=== PATIENT | female | born 1990 | race Caucasian/White ===

== ENCOUNTER 2018-01-11 12:20 | Emergency (ER) | payer OTHER, MEDICAID ==
[~2018-01-11] VITALS: Ht 152.4 cm; Wt 108.9 kg
[~2018-01-11 12:20] MED LIST: ACETAMINOPHEN-1 EAC1; ACETAMINOPHEN-1 EAC1 PO; ANTIBIOTIC; BACTRIM DS TAB1 EACH PO; BENTYL 20 MG TA20 M1 PO; CIPRO250 M1 PO; CITRATE OF MAG300 ML PO; IBUPROFEN 200200 M1 PO; IBUPROFEN 600600 M1 PO; LOESTRIN 24 FE1 EACH PO; MACROBID 100 M100 M1 PO; MACROBID 100 M100 M2 PO; NOHOMEMEDICATIONS; NORCO 5-325 TA1 EACH PO; ONDANSETRON HCL4 M2 PO; PRENATAL; PRENATAL OR; PYRIDIUM200 MG PO; ULTRAM 50MG TAB50 MG PO
[2018-01-11 12:35] VITALS: BP 152/87
[2018-01-11] MEDS ORDERED: PRILOSEC 20 MG20 MG PO (12:37)
[2018-01-11] MEDS ORDERED: ACETAMINOPHEN-1 EAC1 PO (12:53)
[2018-01-11] MEDS ORDERED: AUGMENTIN 875-1 EACH PO (12:53)
== END 2018-01-11 13:04 | disposition home or self-care (01) ==
LOC: M.ERS 12:20
DX: K04.7 Periapical abscess without sinus (principal); Z77.22 Contact with and (suspected) exposure to environmental tobacco smoke (acute) (chronic); Z88.1 Allergy status to other antibiotic agents; Z90.49 Acquired absence of other specified parts of digestive tract

== ENCOUNTER 2018-03-12 15:42 | Emergency (ER) | payer OTHER, MEDICAID ==
[~2018-03-12] VITALS: Ht 152.4 cm; Wt 106.6 kg
[~2018-03-12 15:42] MED LIST changes: +AUGMENTIN 875-1 EACH PO; +PRILOSEC 20 MG20 MG PO
[2018-03-12 16:30] LABS: ABSOLUTE EOSINOPHILS 0.1 thou/uL (0.0-0.7); ABSOLUTE LYMPHOCYTES 1.5 thou/uL (0.8-5.3); ABSOLUTE MONOCYTES 0.5 thou/uL (0.0-1.2); ABSOLUTE NEUTROPHILS 4.6 thou/uL (1.6-8.1); BASOPHILS 0.2 %; HEMATOCRIT 35.9 % (37.0-47.0); HEMOGLOBIN 11.7 gm/dL (12.0-15.0); LYMPHOCYTES 22.7 %; MCH 25.5 pg (26.0-34.0); MCHC 32.6 g/dL (28.0-37.0); MCV 78.4 fL (80.0-100.0); MONOCYTES 8.1 %; MPV 8.6 fl. (7.2-11.1); NUCLEATED RBCS 0 /100WBC; PLATELET COUNT* 264 thou/uL (150-400); RBC 4.58 mil/uL (4.20-5.00); RDW-CV 17.4 % (10.5-14.5); WBC 6.7 thou/uL (4.0-11.0)
[2018-03-12 16:31] LABS: URINE BILIRUBIN NEGATIVE (Negative); URINE BLOOD NEGATIVE (Negative); URINE CLARITY CLEAR; URINE COLOR YELLOW; URINE GLUCOSE-RANDOM NEGATIVE (Negative); URINE KETONES NEGATIVE (Negative); URINE LEUKOCYTES NEGATIVE (Negative); URINE NITRITE NEGATIVE (Negative); URINE PROTEIN NEGATIVE (Negative); URINE SPECIFIC GRAVITY <= 1.005 (1.005-1.030); URINE UROBILINOGEN 0.2 E.U./dl (0.2-1.0)
[2018-03-12 16:41] LABS: CALCIUM 8.7 mg/dL (8.5-10.1); CREATININE 0.9 mg/dL (0.6-1.3); POTASSIUM 3.3 mmol/L (3.5-5.1)
[2018-03-12 16:45] LABS: ALBUMIN 3.7 g/dL (3.4-5.0); TOTAL BILIRUBIN 0.3 mg/dL (<0.1-1.0); TOTAL PROTEIN 7.5 g/dL (6.4-8.2)
[2018-03-12] MEDS ORDERED: ONDANSETRON HCL4 M2 PO (18:38)
[2018-03-12] MEDS ORDERED: PRILOSEC 20 MG20 MG PO (18:38)
[2018-03-12] MEDS ORDERED: TRAMADOL 50 MG50 MG PO (18:40)
[2018-03-12 19:24] VITALS: BP 139/90
== END 2018-03-12 19:26 | disposition home or self-care (01) ==
LOC: M.ERS 15:42
PROVIDERS: Nurse Practitioner Family
DX: K52.9 Noninfective gastroenteritis and colitis, unspecified (principal); K21.9 Gastro-esophageal reflux disease without esophagitis; N83.202 Unspecified ovarian cyst, left side; Z90.49 Acquired absence of other specified parts of digestive tract

== ENCOUNTER 2018-06-26 14:50 | Emergency (ER) | payer OTHER, MEDICAID ==
[~2018-06-26] VITALS: Ht 152.4 cm; Wt 104.3 kg
[~2018-06-26 14:50] MED LIST changes: +TRAMADOL 50 MG50 MG PO
[2018-06-26 15:01] VITALS: BP 154/85
[2018-06-26] MEDS ORDERED: AMOXICILLIN 50500 MG PO (15:12)
== END 2018-06-26 15:20 | disposition home or self-care (01) ==
LOC: M.ERS 14:50
DX: J01.90 Acute sinusitis, unspecified (principal); B96.89 Other specified bacterial agents as the cause of diseases classified elsewhere; Z77.22 Contact with and (suspected) exposure to environmental tobacco smoke (acute) (chronic); Z88.1 Allergy status to other antibiotic agents; Z88.2 Allergy status to sulfonamides; Z90.49 Acquired absence of other specified parts of digestive tract; Z98.890 Other specified postprocedural states

== ENCOUNTER 2018-08-19 17:26 | Emergency (ER) | payer MEDICAID ==
[~2018-08-19] VITALS: Ht 152.4 cm; Wt 104.3 kg
[~2018-08-19 17:26] MED LIST changes: +AMOXICILLIN 50500 MG PO
[2018-08-19 17:47] LABS: URINE BILIRUBIN NEGATIVE (Negative); URINE BLOOD NEGATIVE (Negative); URINE CLARITY SL CLOUDY; URINE COLOR STRAW; URINE GLUCOSE-RANDOM NEGATIVE (Negative); URINE KETONES NEGATIVE (Negative); URINE LEUKOCYTES-REFLEX 2+ (Negative); URINE NITRITE-REFLEX NEGATIVE (Negative); URINE PROTEIN NEGATIVE (Negative); URINE SPECIFIC GRAVITY <= 1.005 (1.005-1.030); URINE UROBILINOGEN 0.2 E.U./dl (0.2-1.0)
[2018-08-19 17:51] LABS: SQUAMOUS >10 Many /LPF (0-3)
[2018-08-19 17:53] LABS: URINE RBC 0-2 Rare /HPF (0-2); URINE WBC-REFLEX 6-15 Few /HPF (0-5)
[2018-08-19 17:54] LABS: CASTS None Seen /LPF (None Seen); CRYSTALS None Seen /LPF (None Seen); MUCUS None Seen strn/LPF (None Seen)
[2018-08-19 18:04] LABS: ABSOLUTE EOSINOPHILS 0.1 thou/uL (0.0-0.7); ABSOLUTE LYMPHOCYTES 2.4 thou/uL (0.8-5.3); ABSOLUTE MONOCYTES 0.7 thou/uL (0.0-1.2); ABSOLUTE NEUTROPHILS 5.6 thou/uL (1.6-8.1); BASOPHILS 0.4 %; EOSINOPHILS 0.8 %; HEMATOCRIT 35.1 % (37.0-47.0); HEMOGLOBIN 11.5 gm/dL (12.0-15.0); MCH 25.3 pg (26.0-34.0); MCHC 32.8 g/dL (28.0-37.0); MCV 77.1 fL (80.0-100.0); MONOCYTES 7.9 %; MPV 8.4 fl. (7.2-11.1); NUCLEATED RBCS 0 /100WBC; PLATELET COUNT* 333 thou/uL (150-400); POLYS 63.9 %; RBC 4.56 mil/uL (4.20-5.00); RDW-CV 18.5 % (10.5-14.5); WBC 8.8 thou/uL (4.0-11.0)
[2018-08-19 18:06] LABS: CREATININE 1.2 mg/dL (0.6-1.3); POTASSIUM 3.6 mmol/L (3.5-5.1)
[2018-08-19 18:10] LABS: TOTAL BILIRUBIN 0.3 mg/dL (<0.1-1.0); TOTAL PROTEIN 7.8 g/dL (6.4-8.2)
[2018-08-19] MEDS ORDERED: NAPROSYN500 MG PO (20:03)
[2018-08-19] MEDS ORDERED: ACETAMINOPHEN-1 EAC1 PO (20:03)
[2018-08-19] MEDS ORDERED: MACROBID 100 M100 M1 PO (20:03)
[2018-08-19 20:12] VITALS: BP 135/85
== END 2018-08-19 20:12 | disposition home or self-care (01) ==
LOC: M.ERS 17:26
PROVIDERS: Nurse Practitioner Family; Physician Assistant
DX: N83.201 Unspecified ovarian cyst, right side (principal); N39.0 Urinary tract infection, site not specified; Z77.22 Contact with and (suspected) exposure to environmental tobacco smoke (acute) (chronic); Z88.1 Allergy status to other antibiotic agents; Z88.2 Allergy status to sulfonamides; Z90.49 Acquired absence of other specified parts of digestive tract; Z98.890 Other specified postprocedural states

== ENCOUNTER 2018-12-03 18:24 | Emergency (ER) | payer OTHER, MEDICAID ==
[~2018-12-03] VITALS: Ht 152.4 cm; Wt 104.3 kg
[~2018-12-03 18:24] MED LIST changes: +NAPROSYN500 MG PO
[2018-12-03] MEDS ORDERED: ZOLOFT25 MG PO (18:35)
[2018-12-03] MEDS ORDERED: ZANTAC 150MG T150 MG PO (18:35)
[2018-12-03] MEDS ORDERED: NORCO 5-325 TA1 EACH PO (19:01)
[2018-12-03 19:53] VITALS: BP 113/51
== END 2018-12-03 19:53 | disposition home or self-care (01) ==
LOC: M.ERS 18:24
DX: S53.491A Other sprain of right elbow, initial encounter (principal); Z90.49 Acquired absence of other specified parts of digestive tract; Z98.890 Other specified postprocedural states; Z88.1 Allergy status to other antibiotic agents; Z88.2 Allergy status to sulfonamides; W01.0XXA Fall on same level from slipping, tripping and stumbling without subsequent striking against object, initial encounter; Y93.89 Activity, other specified; Y92.89 Other specified places as the place of occurrence of the external cause; Y99.8 Other external cause status

== ENCOUNTER 2018-12-08 19:53 | Emergency (ER) | payer OTHER ==
[~2018-12-08] VITALS: Ht 152.4 cm; Wt 104.3 kg
[~2018-12-08 19:53] MED LIST changes: +ZANTAC 150MG T150 MG PO; +ZOLOFT25 MG PO
[2018-12-08] MEDS ORDERED: NORFLEX100 MG PO (21:31)
[2018-12-08] MEDS ORDERED: IBUPROFEN 800800 M1 PO (21:31)
[2018-12-08 21:51] VITALS: BP 139/78
== END 2018-12-08 21:51 | disposition home or self-care (01) ==
LOC: M.ERS 19:53
DX: S16.1XXA Strain of muscle, fascia and tendon at neck level, initial encounter (principal); S29.012A Strain of muscle and tendon of back wall of thorax, initial encounter; S40.011A Contusion of right shoulder, initial encounter; S09.8XXA Other specified injuries of head, initial encounter; Z90.49 Acquired absence of other specified parts of digestive tract; Z98.890 Other specified postprocedural states; Z88.1 Allergy status to other antibiotic agents; Z88.2 Allergy status to sulfonamides; Z77.22 Contact with and (suspected) exposure to environmental tobacco smoke (acute) (chronic); V89.2XXA Person injured in unspecified motor-vehicle accident, traffic, initial encounter; Y93.89 Activity, other specified; Y92.89 Other specified places as the place of occurrence of the external cause; Y99.8 Other external cause status

== ENCOUNTER 2019-02-08 01:31 | Emergency (ER) | payer OTHER, MEDICAID ==
[~2019-02-08] VITALS: Ht 152.4 cm; Wt 111.6 kg
[~2019-02-08 01:31] MED LIST changes: +IBUPROFEN 800800 M1 PO; +NORFLEX100 MG PO
[2019-02-08] MEDS ORDERED: ZOLOFT50 MG PO (01:41)
[2019-02-08 02:04] LABS: ABSOLUTE BASOPHILS 0.1 thou/uL (0.0-0.2); ABSOLUTE EOSINOPHILS 0.1 thou/uL (0.0-0.7); ABSOLUTE LYMPHOCYTES 2.2 thou/uL (0.8-5.3); ABSOLUTE NEUTROPHILS 6.1 thou/uL (1.6-8.1); BASOPHILS 0.7 %; EOSINOPHILS 1.5 %; HEMATOCRIT 35.9 % (37.0-47.0); HEMOGLOBIN 11.6 gm/dL (12.0-15.0); LYMPHOCYTES 22.9 %; MCH 25.6 pg (26.0-34.0); MCHC 32.5 g/dL (28.0-37.0); MCV 78.9 fL (80.0-100.0); MONOCYTES 10.2 %; MPV 8.3 fl. (7.2-11.1); NUCLEATED RBCS 0 /100WBC; PLATELET COUNT* 298 thou/uL (150-400); POLYS 64.7 %; RBC 4.54 mil/uL (4.20-5.00); RDW-CV 17.8 % (10.5-14.5); WBC 9.5 thou/uL (4.0-11.0)
[2019-02-08 02:23] LABS: ANION GAP 8 mmol/L (7-16); BUN 10 mg/dL (7-18); CALCIUM 8.8 mg/dL (8.5-10.1); CHLORIDE 105 mmol/L (98-107); CO2 27 mmol/L (21-32); GLUCOSE 96 mg/dL (70-99); POTASSIUM 4.1 mmol/L (3.5-5.1); SODIUM 140 mmol/L (136-145)
[2019-02-08 02:33] LABS: ALBUMIN 3.4 g/dL (3.4-5.0); ALKALINE PHOSPHATASE 67 U/L (46-116); LIPASE 156 U/L (73-393); MAGNESIUM 1.8 mg/dL (1.8-2.4); NT-PRO BRAIN NAT PEPTIDE 25 pg/mL (<300); SGOT 17 U/L (15-37); SGPT 27 U/L (30-65); TOTAL BILIRUBIN 0.2 mg/dL (<0.1-1.0); TOTAL PROTEIN 7.3 g/dL (6.4-8.2); TROPONIN-I LEVEL <0.06 ng/mL (<0.06)
[2019-02-08] MEDS ORDERED: CARAFATE 1 GM TA1 G1 PO (03:15)
[2019-02-08] MEDS ORDERED: ZOFRAN ODT4 MG DISSOLVE (03:15)
[2019-02-08 03:25] VITALS: BP 143/87
--- NOTE | 2019-02-08 16:36 | EKG ---
[place] [address] ELECTROCARDIOGRAM REPORT Name: ANNEMARIE MENDENHALL Room: [facility]#: [id number] Admission: 02/08/19 Attend Phys: Discharge: 02/08/19 Date of : 86 Report #: [id number] THIS REPORT FOR: //name// [facility] ED Test Date: 2019-02-08 Test Time: 01:36:39 Pat Name: ANNEMARIE MENDENHALL Department: Room: Gender: F [employer]: [place] : 1990 Requested By: Bernardino Mcmahon Order Number: [id number] MD: Jeffrey Capps Measurements Intervals [place] Rate: 76 P: 25 ID: [id number] QRS: 4 QRSD: 104 T: 48 QT: 405 QTc: 456 Interpretive Statements Sinus rhythm Abnormal T, consider ischemia, anterior leads Compared to ECG 05/22/2010 19:34:50 T-wave abnormality now present Possible ischemia now present Incomplete right bundle-branch block no longer present Electronically Signed On 02-08-2019 16:35:49 CDT by Jeffrey Capps [email or web address] <ELECTRONICALLY SIGNED> By: Jeffrey Capps MD, [facility] 02/08/19 [id number] [id number] Jeffrey Capps MD, [facility] /EPI
== END 2019-02-08 03:25 | disposition home or self-care (01) ==
LOC: M.ERS 01:31
PROVIDERS: Emergency Medicine Emergency Medical Services
DX: R07.89 Other chest pain (principal); Z77.22 Contact with and (suspected) exposure to environmental tobacco smoke (acute) (chronic); Z88.1 Allergy status to other antibiotic agents; Z88.2 Allergy status to sulfonamides; Z90.49 Acquired absence of other specified parts of digestive tract; Z98.51 Tubal ligation status

== ENCOUNTER 2019-06-05 14:12 | Emergency (ER) | payer OTHER, MEDICAID ==
[~2019-06-05] VITALS: Ht 152.4 cm; Wt 108.9 kg
[~2019-06-05 14:12] MED LIST changes: +CARAFATE 1 GM TA1 G1 PO; +ZOFRAN ODT4 MG DISSOLVE; +ZOLOFT50 MG PO
[2019-06-05] MEDS ORDERED: BUTALB-ACETAMI1 EAC2 PO (14:27)
[2019-06-05] MEDS ORDERED: OMEPRAZOLE 20 M20 M1 PO (14:28)
[2019-06-05 14:51] LABS: URINE BILIRUBIN NEGATIVE (Negative); URINE BLOOD NEGATIVE (Negative); URINE CLARITY CLEAR; URINE COLOR YELLOW; URINE GLUCOSE-RANDOM NEGATIVE (Negative); URINE KETONES NEGATIVE (Negative); URINE LEUKOCYTES-REFLEX NEGATIVE (Negative); URINE NITRITE-REFLEX NEGATIVE (Negative); URINE PROTEIN NEGATIVE (Negative); URINE UROBILINOGEN 0.2 E.U./dl (0.2-1.0)
[2019-06-05 15:23] LABS: ABSOLUTE EOSINOPHILS 0.1 thou/uL (0.0-0.7); ABSOLUTE LYMPHOCYTES 2.1 thou/uL (0.8-5.3); ABSOLUTE MONOCYTES 0.7 thou/uL (0.0-1.2); ABSOLUTE NEUTROPHILS 5.9 thou/uL (1.6-8.1); BASOPHILS 0.4 %; EOSINOPHILS 1.5 %; HEMATOCRIT 34.8 % (37.0-47.0); HEMOGLOBIN 11.5 gm/dL (12.0-15.0); LYMPHOCYTES 23.6 %; MCH 25.3 pg (26.0-34.0); MCV 76.7 fL (80.0-100.0); MONOCYTES 7.9 %; NUCLEATED RBCS 0 /100WBC; PLATELET COUNT* 352 thou/uL (150-400); POLYS 66.6 %; RBC 4.54 mil/uL (4.20-5.00); RDW-CV 17.7 % (10.5-14.5); WBC 8.8 thou/uL (4.0-11.0)
[2019-06-05 15:44] LABS: CREATININE 0.9 mg/dL (0.6-1.3); POTASSIUM 4.5 mmol/L (3.5-5.1)
[2019-06-05 15:55] LABS: ALBUMIN 3.8 g/dL (3.4-5.0); TOTAL BILIRUBIN 0.2 mg/dL (<0.1-1.0); TOTAL PROTEIN 7.6 g/dL (6.4-8.2)
[2019-06-05] MEDS ORDERED: ZANAFLEX4 MG PO (16:37)
[2019-06-05] MEDS ORDERED: NABUMETONE 750750 M1 PO (16:37)
[2019-06-05] MEDS ORDERED: NORCO 5-325 TA1 EAC1 PO (16:37)
[2019-06-05 16:54] VITALS: BP 117/71
--- NOTE | 2019-06-06 08:57 | EKG ---
[place] [address] ELECTROCARDIOGRAM REPORT Name: ANNEMARIE MENDENHALL [id number] Admission: 06/05/19 Attend Phys: Discharge: 06/05/19 Date of : [birth year] Report #: [id number] THIS REPORT FOR: //name// [facility] ED Test Date: 2019-06-05 Test Time: 14:56:24 Pat Name: ANNEMARIE MENDENHALL Department: Room: Gender: F Associate Merchandiser: : 1990 Requested By: Herminia Flores Order Number: [id number] MD: Jeffrey Capps Measurements Intervals [place] Rate: 86 P: 13 NM: 132 QRS: -11 QRSD: 107 T: 29 QT: 407 QTc: 487 Interpretive Statements Sinus rhythm Nonspecific T abnormalities, anterior leads Compared to ECG 02/08/2019 01:36:39 T-wave abnormality still present Electronically Signed On 06-06-2019 8:57:31 [employer]IST by Jeffrey Capps [email or web address] <ELECTRONICALLY SIGNED> By: Jeffrey Capps MD, [facility] 06/06/19 0857 [id number] Jeffrey [email or web address] MD, [facility] /EPI
== END 2019-06-05 16:55 | disposition home or self-care (01) ==
LOC: M.ERS 14:12
PROVIDERS: Nurse Practitioner Family
DX: R51 Headache (principal); M54.6 Pain in thoracic spine; Z88.1 Allergy status to other antibiotic agents; Z88.2 Allergy status to sulfonamides; Z77.22 Contact with and (suspected) exposure to environmental tobacco smoke (acute) (chronic); Z90.49 Acquired absence of other specified parts of digestive tract; Z98.51 Tubal ligation status